=== PATIENT | male | born 2000 | race Caucasian/White ===

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

== ENCOUNTER 2021-04-26 10:34 | Emergency (ER) | payer SELFPAY ==
[2021-04-26 10:45] VITALS: BP 146/80; PULSE 101; TEMP 98.5; BMI 21.7
== END 2021-04-26 11:53 | disposition home or self-care (01) ==
LOC: JER 10:34
DX: J34.89 Other specified disorders of nose and nasal sinuses (principal)
CPT/HCPCS: 99283-25